=== PATIENT | female | born 1945 | race Caucasian/White ===

== ENCOUNTER 2018-08-14 17:41 | Emergency (ER) | payer MEDICARE, BC ==
[~2018-08-14] VITALS: Ht 162.6 cm; Wt 52.3 kg
[~2018-08-14 17:41] MED LIST: CALCIUM 500500 M2 PO; DOXYCYCLINE 10100 MG PO; SYNTHROID0.125 MG/T PO; THYROID MED
[2018-08-14 17:49] VITALS: BP 152/68; TEMP 97.7
[2018-08-14 19:14] VITALS: PULSE 67
== END 2018-08-14 19:14 | disposition home or self-care (01) ==
LOC: COL.ER 17:41
DX: S20.212A Contusion of left front wall of thorax, initial encounter (principal); E03.9 Hypothyroidism, unspecified; F17.210 Nicotine dependence, cigarettes, uncomplicated; J44.9 Chronic obstructive pulmonary disease, unspecified; W00.0XXA Fall on same level due to ice and snow, initial encounter; Y92.009 Unspecified place in unspecified non-institutional (private) residence as the place of occurrence of the external cause
CPT/HCPCS: A9284

== ENCOUNTER 2018-08-16 15:56 | Emergency (ER) | payer MEDICARE, BC ==
[~2018-08-16] VITALS: Ht 162.6 cm; Wt 51.4 kg
[2018-08-16 16:13] VITALS: BP 148/63; TEMP 98
[2018-08-16 19:45] VITALS: PULSE 87
[2018-08-16] MEDS ORDERED: FLEXERIL5 MG PO (19:47)
== END 2018-08-16 19:50 | disposition home or self-care (01) ==
LOC: COL.ER 15:56
DX: S20.222A Contusion of left back wall of thorax, initial encounter (principal); F17.210 Nicotine dependence, cigarettes, uncomplicated; Z98.890 Other specified postprocedural states; W19.XXXA Unspecified fall, initial encounter

== ENCOUNTER 2019-07-01 22:53 | Emergency (ER) | payer MEDICARE, BC ==
[~2019-07-01] VITALS: Ht 165.1 cm; Wt 52.3 kg
[~2019-07-01 22:53] MED LIST changes: +CLEOCIN HCL300 MG PO; +FLEXERIL5 MG PO
[2019-07-01 23:09] VITALS: BP 142/77; TEMP 97.5
[2019-07-01 23:38] LABS: BASO # 0.1 (0.0-0.2); BASO % 1.4 % (0.0-2.0); EOS # 0.3 (0.0-0.7); EOS % 3.7 % (0-4.0); GRAN # 4.8 (1.4-6.5); GRAN % 59.5 % (42.2-75.2); HEMATOCRIT 37.1 % (37.0-47.0); HEMOGLOBIN 12.1 g/dl (12.5-16.0); LYMPH # 1.9 (1.2-3.4); LYMPH % 23.4 % (20.0-51.0); MEAN CELL VOLUME 91 fl (80.0-100.0); MEAN CORPUSCULAR HEMOGLOBIN 30 pg (27.0-31.0); MEAN CORPUSCULAR HGB CONC 33 g/dl (33.0-37.0); MEAN PLATELET VOLUME 9.2 fl (7.4-10.4); MONO # 0.9 (0.1-0.6); MONO % 11.6 % (1.7-9.3); PLATELET COUNT 279 K/mm3 (130-400); RED BLOOD COUNT 4.06 M/mm3 (4.10-5.30); REDCELL DISTRIBUTION WIDTH-CV 12.1 % (11.5-14.5)
[2019-07-01 23:48] LABS: ALANINE AMINOTRANSFERASE 14 U/L (9-52); ALBUMIN 4.1 gm/dL (3.5-5.0); ALKALINE PHOSPHATASE 61 U/L (50-136); ANION GAP 7 mmol/L (7-16); AST,SGOT 23 U/L (15-37); BILIRUBIN,TOTAL 0.3 mg/dL (0.0-1.0); BLOOD UREA NITROGEN 10 mg/dL (7-17); CALCIUM 8.2 mg/dL (8.4-10.2); CARBON DIOXIDE 27 mmol/L (22-30); CHLORIDE 103 mmol/L (98-107); CREATININE, serum 0.46 (0.52-1.25); GLUCOSE 98 mg/dL (74-106); LIPASE 684 U/L (23-300); MAGNESIUM 1.7 mg/dL (1.6-2.3); POTASSIUM 3.7 mmol/L (3.4-5.0); SODIUM 137 mmol/L (137-145); TOTAL PROTEIN 7.1 gm/dL (6.4-8.2)
[2019-07-02] LABS: TROPONIN-I < 0.012 ng/mL (0.000-0.035)
[2019-07-02 00:48] LABS: COLLECTION METHOD CLEAN CATCH
[2019-07-02 00:54] LABS: MUCOUS Present /lpf; PH 6 (5-8); SQUAMOUS EPITHELIAL None Seen /hpf; URINE APPEARANCE Clear; URINE BACTERIA None Seen /hpf; URINE BILIRUBIN Negative (NEGATIVE); URINE BLOOD Negative (NEGATIVE); URINE COLOR Yellow; URINE GLUCOSE Negative (NEGATIVE); URINE KETONE Negative (NEGATIVE); URINE LEUKOCYTE ESTERASE Negative (NEGATIVE); URINE NITRATE Negative (NEGATIVE); URINE PROTEIN(semi-quant) Negative (NEGATIVE); URINE RBC 0-2 /hpf; URINE UROBILINOGEN Negative (NEGATIVE)
[2019-07-02] MEDS ORDERED: CARAFATE 1GM1 G PO (02:15)
[2019-07-02] MEDS ORDERED: PROTONIX 40MG T40 MG PO (02:15)
[2019-07-02 02:47] VITALS: PULSE 72
== END 2019-07-02 02:47 | disposition home or self-care (01) ==
LOC: COL.ER 22:53
PROVIDERS: Emergency Medicine
DX: K29.70 Gastritis, unspecified, without bleeding (principal); F17.210 Nicotine dependence, cigarettes, uncomplicated
CPT/HCPCS: C9113; J2405; J7030; Q9967

== ENCOUNTER 2019-09-24 16:41 | Emergency (ER) | payer MEDICARE, BC ==
[~2019-09-24] VITALS: Ht 162.6 cm; Wt 50.0 kg
[~2019-09-24 16:41] MED LIST changes: +CARAFATE 1GM1 G PO; +PROTONIX 40MG T40 MG PO; +ULTRAM 50MG TAB50 MG PO
[2019-09-24 16:43] VITALS: TEMP 98.2
[2019-09-24 17:18] LABS: COLLECTION METHOD CLEAN CATCH
[2019-09-24 17:22] LABS: BASO # 0.1 (0.0-0.2); BASO % 1.4 % (0.0-2.0); EOS # 0.2 (0.0-0.7); EOS % 2.8 % (0-4.0); GRAN # 3.8 (1.4-6.5); GRAN % 59.8 % (42.2-75.2); HEMATOCRIT 40.5 % (37.0-47.0); HEMOGLOBIN 13.4 g/dl (12.5-16.0); LYMPH # 1.4 (1.2-3.4); LYMPH % 22.6 % (20.0-51.0); MEAN CELL VOLUME 89 fl (80.0-100.0); MEAN CORPUSCULAR HEMOGLOBIN 30 pg (27.0-31.0); MEAN CORPUSCULAR HGB CONC 33 g/dl (33.0-37.0); MEAN PLATELET VOLUME 9.7 fl (7.4-10.4); MONO # 0.8 (0.1-0.6); MONO % 13.2 % (1.7-9.3); PLATELET COUNT 247 K/mm3 (130-400); RED BLOOD COUNT 4.53 M/mm3 (4.10-5.30); REDCELL DISTRIBUTION WIDTH-CV 12.2 % (11.5-14.5)
[2019-09-24 17:29] LABS: AMORPHOUS CRYSTAL Present /uL; MUCOUS Present /lpf; PH 7 (5-8); SQUAMOUS EPITHELIAL None Seen /hpf; URINE APPEARANCE Clear; URINE BACTERIA Rare /hpf; URINE BILIRUBIN Negative (NEGATIVE); URINE BLOOD Negative (NEGATIVE); URINE COLOR Straw; URINE GLUCOSE Negative (NEGATIVE); URINE KETONE Negative (NEGATIVE); URINE LEUKOCYTE ESTERASE Negative (NEGATIVE); URINE NITRATE Negative (NEGATIVE); URINE PROTEIN(semi-quant) Negative (NEGATIVE); URINE RBC None Seen /hpf; URINE UROBILINOGEN Negative (NEGATIVE)
[2019-09-24 17:35] LABS: ALANINE AMINOTRANSFERASE 16 U/L (4-34); ALBUMIN 4.9 gm/dL (3.5-5.0); ALKALINE PHOSPHATASE 82 U/L (50-136); ANION GAP 9 mmol/L (7-16); AST,SGOT 32 U/L (15-37); BILIRUBIN,TOTAL 0.5 mg/dL (0.0-1.0); BLOOD UREA NITROGEN 8 mg/dL (7-17); CALCIUM 11.4 mg/dL (8.4-10.2); CARBON DIOXIDE 33 mmol/L (22-30); CHLORIDE 93 mmol/L (98-107); CREATININE, serum 0.74 (0.52-1.25); GLUCOSE 117 mg/dL (74-106); LIPASE 117 U/L (23-300); POTASSIUM 4.2 mmol/L (3.4-5.0); SODIUM 134 mmol/L (137-145); TOTAL PROTEIN 8.2 gm/dL (6.4-8.2)
[2019-09-24 17:37] LABS: C-REACTIVE PROTEIN < 0.5 mg/dL (0.0-0.9)
[2019-09-24 19:20] VITALS: BP 107/68; PULSE 75
== END 2019-09-24 20:36 | disposition home or self-care (01) ==
LOC: COL.ER 16:41
PROVIDERS: Family Medicine
DX: K56.7 Ileus, unspecified (principal); K21.9 Gastro-esophageal reflux disease without esophagitis; F17.210 Nicotine dependence, cigarettes, uncomplicated
CPT/HCPCS: J1885; J2405; J7120; Q9967

== ENCOUNTER 2019-10-08 14:44 | Outpatient (CLI) | payer MEDICARE, BC ==
[~2019-10-08] VITALS: Ht 162.6 cm; Wt 50.9 kg
[2019-10-08 15:31] VITALS: BP 140/71; PULSE 72; TEMP 98.3
== END 2019-10-08 15:32 | disposition home or self-care (01) ==
LOC: EUO 14:44
DX: M81.0 Age-related osteoporosis without current pathological fracture (principal)
CPT/HCPCS: J0897

== ENCOUNTER 2020-04-08 12:43 | Outpatient (CLI) | payer MEDICARE, BC ==
[~2020-04-08] VITALS: Ht 162.6 cm; Wt 50.7 kg
[~2020-04-08 12:43] MED LIST changes: +MIRALAX510G PO
[2020-04-08] MEDS ORDERED: COLACE 100100 MG/CAP PO (13:10)
[2020-04-08 13:18] VITALS: BP 150/72; PULSE 82; TEMP 98.4
== END 2020-04-08 13:21 | disposition home or self-care (01) ==
LOC: EUO 12:43
DX: M81.0 Age-related osteoporosis without current pathological fracture (principal)
CPT/HCPCS: J0897

== ENCOUNTER 2020-10-07 12:44 | Outpatient (CLI) | payer MEDICARE, BC ==
[~2020-10-07] VITALS: Ht 162.6 cm; Wt 49.8 kg
[~2020-10-07 12:44] MED LIST changes: +COLACE 100100 MG/CAP PO
[2020-10-07 13:25] VITALS: BP 123/66; PULSE 103; TEMP 98.3
== END 2020-10-07 14:18 | disposition home or self-care (01) ==
LOC: EUO 12:44
DX: M81.0 Age-related osteoporosis without current pathological fracture (principal)
CPT/HCPCS: J0897

== ENCOUNTER 2021-05-02 07:56 | Outpatient (CLI) | payer MEDICARE, BC ==
[~2021-05-02] VITALS: Ht 162.6 cm; Wt 52.0 kg
[2021-05-02 09:31] VITALS: BP 139/67; PULSE 77; TEMP 98.2
== END 2021-05-02 09:32 ==
LOC: EUO 07:56
DX: M81.0 Age-related osteoporosis without current pathological fracture (principal)
CPT/HCPCS: J0897

== ENCOUNTER 2021-07-08 11:55 | Emergency (ER) | payer MEDICARE ==
[~2021-07-08] VITALS: Ht 162.6 cm; Wt 52.3 kg
[2021-07-08 12:13] VITALS: TEMP 97.8
[2021-07-08] MEDS ORDERED: DOXYCYCLINE 10100 MG PO (12:57)
[2021-07-08 14:48] VITALS: BP 133/84; PULSE 62
== END 2021-07-08 15:04 | disposition home or self-care (01) ==
LOC: COL.ER 11:55
DX: U07.1 COVID-19 (principal); J44.9 Chronic obstructive pulmonary disease, unspecified; I10 Essential (primary) hypertension; E07.9 Disorder of thyroid, unspecified; F17.210 Nicotine dependence, cigarettes, uncomplicated; Z86.16 Personal history of COVID-19; Z88.0 Allergy status to penicillin; Z88.1 Allergy status to other antibiotic agents; Z79.890 Hormone replacement therapy
CPT/HCPCS: Q0247

== ENCOUNTER → 2021-07-28 | Outpatient (CLI) | payer MEDICARE | LOC: COL.RAD 11:57 | DX: Z12.2 Encounter for screening for malignant neoplasm of respiratory organs (principal); F17.210 Nicotine dependence, cigarettes, uncomplicated ==

== ENCOUNTER 2021-11-01 13:44 | Outpatient (CLI) | payer MEDICARE ==
[2021-11-01 14:22] VITALS: BP 101/68; PULSE 70; TEMP 98.3
[2021-11-01] MEDS ORDERED: CELEBREX 200MG200 MG PO (14:24)
== END 2021-11-01 14:27 ==
LOC: EUO 13:44
DX: M81.0 Age-related osteoporosis without current pathological fracture (principal)
CPT/HCPCS: J0897

== ENCOUNTER 2023-06-06 10:21 | Outpatient (CLI) | payer MEDICARE ==
[~2023-06-06] VITALS: Ht 162.6 cm; Wt 50.9 kg
[~2023-06-06 10:21] MED LIST changes: +CELEBREX 200MG200 MG PO; +SYNTHROID0.075 MG/T PO; -SYNTHROID0.125 MG/T PO
[2023-06-06 10:36] VITALS: BP 166/83; PULSE 68; TEMP 97.7
[2023-06-06] MEDS ORDERED: PROLIA60 MG/ML SQ (10:44)
[2023-06-06] MEDS ORDERED: COMPLETE MULTI1 TAB PO (10:45)
[2023-06-06] MEDS ORDERED: CALCIUM 600 MG1 EAC2 PO (10:45)
--- NOTE | 2023-06-06 10:59 | NUR ---
Pt tolerated prolia without issue. She exits dept with belongings, gait steady.
== END 2023-06-06 10:59 | disposition home or self-care (01) ==
LOC: EUO 10:21
DX: M81.0 Age-related osteoporosis without current pathological fracture (principal)
CPT/HCPCS: J0897

== ENCOUNTER 2023-12-09 12:43 | Outpatient (CLI) | payer MEDICARE ==
[~2023-12-09] VITALS: Ht 162.6 cm; Wt 50.8 kg
[~2023-12-09 12:43] MED LIST changes: +CALCIUM 600 MG1 EAC2 PO; +COMPLETE MULTI1 TAB PO; +PROLIA60 MG/ML SQ; +SYNTHROID0.05 MG/TA PO; -SYNTHROID0.075 MG/T PO
[2023-12-09] MEDS ORDERED: Denosumab 60 MG/ML SYRINGE SQ ONE (14:00)
== END 2023-12-09 15:24 ==
LOC: EUO 12:43
DX: M81.0 Age-related osteoporosis without current pathological fracture (principal)
CPT/HCPCS: J0897